=== PATIENT | male | born 1955 | race Caucasian/White ===

== ENCOUNTER → 2019-10-24 | Outpatient (CLI) | payer BC, SELFPAY ==
--- NOTE | 2019-10-24 | PROSBIL_PTH ---
PATIENT: ESAU ROWAN LOC: [facility] U#:[id number] AGE/SX: 64/M ROOM: RE10/24/[address]: Dr. Dony Byrnes MD : 1955 BED: DIS: 10/24/2019 SPEC #: [id number] RECD: 10/24/19 15:39 STATUS: LUNA KOREY #: [id number] GLADYS: 10/24/19 00:[address]: Dony Byrnes DEPT: SURGICAL PATHOLOGY RECD BY: Julio Sr ENTERED: 10/25/19 08:42 SP TYPE: PROST BX JOSE DR: Dr. Ayad Parker MD Tissues: A - PROSTATE RIGHT B - PROSTATE RIGHT C - PROSTATE RIGHT D - PROSTATE LEFT E - PROSTATE LEFT F - PROSTATE LEFT Procedures: PROSTATE BX HEADER OPERATION: Prostate biopsy PRE-OP DIAGNOSIS: Elevated PSA TISSUE SUBMITTED: A - Right apex, B - Right mid, C - Right base, D - Left apex, E - Left mid, F - Left base MICROSCOPIC DIAGNOSIS A. Right prostate, apex, core biopsy: Prostatic adenocarcinoma. Lando grade: 3+3=6 Number of cores involved: 1/1 Proportion of tissue involved: ~30-40% Perineural invasion: Not identified. Greatest tumor length: 1 cm, discontinuous B. Right prostate, mid, core biopsy: Prostatic adenocarcinoma. Lando grade: 3+3=6 Number of cores involved: 2/2 Proportion of tissue involved: 80% Perineural invasion: Present, focal. Greatest tumor length: 0.7 cm Focal high-grade prostatic intraepithelial neoplasia (HGPIN). C. Right prostate, base, core biopsy: Prostatic adenocarcinoma. Lando grade: 3+4=7 Number of cores involved: 1/2 Proportion of tissue involved: ~5 -10% Perineural invasion: Not identified. Greatest tumor length: 0.2 cm Focal high-grade prostatic intraepithelial neoplasia (HGPIN). See comment. D. Left prostate, apex, core biopsy: Prostatic tissue, negative for malignancy. E. Left prostate, mid, core biopsy: Focal minimal high-grade prostatic intraepithelial neoplasia (HGPIN). Focal atrophy. F. Left prostate, base, core biopsy: Focal high-grade prostatic intraepithelial neoplasia (HGPIN). SJ:nancy 10/26/19 COMMENT C. Immunohistochemistry ([id number]) supports the above diagnosis. Case has been reviewed in consultation with Dr. Morse who concurs with the above diagnosis. IDC:AM MICROSCOPIC DESCRIPTION Slides are reviewed. GROSS DESCRIPTION A - Received is one container designated prostate, right apex. The specimen consists of one elongated fragment of light hartman-white soft tissue measuring 1.5 cm in length and 0.1 cm in diameter. The specimen is totally submitted in one cassette. B - Received is one container designated prostate, right mid. The specimen consists of two elongated fragments of light hartman-white soft tissue measuring 0.8 and 1 cm in length and 0.1 cm in diameter. The specimen is totally submitted in one cassette. C - Received is one container designated prostate, right base. The specimen consists of two elongated fragments of light hartman-white soft tissue measuring 1 and 1.5 cm in length and 0.1 cm in diameter. The specimen is totally submitted in one cassette. D - Received is one container designated prostate, left apex. The specimen consists of one elongated fragment of light hartman-white soft tissue measuring 1.5 cm in length and 0.1 cm in diameter. The specimen is totally submitted in one cassette. E - Received is one container designated prostate, left mid. The specimen consists of two elongated fragments of light hartman-white soft tissue each measuring 1.5 cm in length and 0.1 cm in diameter. The specimen is totally submitted in one cassette. F - Received is one container designated prostate, left base. The specimen consists of two elongated fragments of light hartman-white soft tissue each measuring 1.5 cm in length and 0.1 cm in diameter. The specimen is totally submitted in one cassette. / SJ:rg 10/25/19 TC:0 [facility]: [id number] x6
--- NOTE | 2019-10-24 | IMM_PTH ---
PATIENT: ESAU ROWAN LOC: [facility] U#:[id number] AGE/SX: 64/M ROOM: RE10/24/[address]: Dr. Dony Byrnes MD : 1955 BED: DIS: 10/24/2019 SPEC #: [id number] RECD: 10/26/19 12:25 STATUS: LUNA REAlcira #: [id number] GLADYS: 10/24/19 00:[address]: Dony Byrnes DEPT: IMMUNOHISTOCHEMISTRY RECD BY: Francesca Smalls ENTERED: 10/26/19 12:25 SP TYPE: IMMUNO OTHR DR: Dr. Ayad Parker MD Tissues: C - PROSTATE RIGHT Procedures: P40 (add) 34BE12 (initial) PHYSICIAN & INSTITUTION [place] [id number] SPECIMEN INFORMATION: Tissue Source: C - Right prostate, base, core biopsy Clinical Info: Elevated PSA Specimen Number: [id number] CPT code: 26516, 81094 METHODOLOGY: Deparaffinized sections of prefer/formalin-fixed tissue or PAP/DQ stained slides are incubated with monoclonal/polyclonal antibodies/oligonucleotide probes. Localization is made via biotin free immunoperoxidase method. Appropriate controls are performed and reacted as expected. Results on target cell population are indicated in the following table: RESULTS: ANTIBODY / CLONE RESULT Block C P40 (BC28) negative 34BE12 (34BE12) negative These tests were developed and their performance characteristics determined by [facility]. They may not have been cleared or approved by the U.S. Food and Drug Administration. The FDA has determined that such clearance or approval is not necessary. The above immunohistochemical/dualISH markers are ordered and reviewed by the Pathologist. INTERPRETATION: C. Right prostate, base, core biopsy: Adenocarcinoma. DI:nancy 10/27/19
== END | disposition home or self-care (01) ==
LOC: LABSPEC 16:04
PROVIDERS: PCP Family Medicine; Referring Provider Urology; Visit Provider Urology
DX: R97.20 Elevated prostate specific antigen [PSA] (principal)
CPT/HCPCS: 88305; 88341; 88342; G0416

== ENCOUNTER 2019-12-20 06:01 | Day surgery (SDC) | payer BC, SELFPAY ==
--- NOTE | 2019-12-14 15:27 | EKG12_ITS ---
Test Reason : PRE OP Blood Pressure : / mmHG Vent. Rate : 066 BPM Atrial Rate : 066 BPM P-R Int : 160 ms QRS Dur : 092 ms QT Int : 414 ms P-R-T Axes : 034 -01 016 degrees QTc Int : 434 ms Normal sinus rhythm Septal infarct , age undetermined Abnormal ECG Confirmed by MARIA ESTHER NAVARRO, ROSLYN ([id number]), magazine editor MANUEL BARAHONA ([id number]) on 12/21/2019 8:37:25 AM Referred By: Dony Byrnes Confirmed By:KRYSTAL MAYO MD
[2019-12-14 16:22] LABS: Hematocrit 43.8 % (40-54); Hemoglobin 14.5 g/dL (13.0-16.5); Mean Corp Hgb Conc 33.1 g/dL (32-36); Mean Corpuscular Hgb 28.9 pg (27.0-32.0); Mean Corpuscular Volume 87.4 fL (80-94); Mean Platelet Vol. 11.3 fl (6.2-12.0); Platelet Count 243 K/mm3 (150-450); RBC Distribution Width CV 13.4 % (11.6-14.6); RBC Distribution Width SD 43.2 fl (35.1-43.9); Red Blood Count 5.01 M/mm3 (4.6-6.2); White Blood Count 8.7 K/mm3 (4.4-11.0)
[2019-12-20] VITALS (13 sets, daily range): BP systolic 106–137; BP diastolic 55–80; PULSE 49–89; RESP 16–18; TEMP 36.2–37.1; O2SAT 94–100; BMI 29.4; BMI 29.8
[2019-12-20] MEDS: Lactated Ringers 1,000 ML 100 ML IV ×4 (06:53→19:05)
--- NOTE | 2019-12-20 07:19 | PCM.HP.STD ---
Problem List (1) Prostate cancer Status: Acute History of Present Illness Date of Admission: 12/20/19 Chief Complaint: Prostate cancer The patient is a 64 year old male with prostate cancer on the right side of the prostate he had Baldemar 6 and also a low volume Baldemar 7 disease. Plan to proceed with laparoscopic robotic assisted radical prostatectomy with bilateral nerve sparing. Past Medical History Allergies No Known Allergies Allergy (Verified 12/20/19 06:46) Home Medications: Ambulatory Orders Medication Instructions Recorded Glucos Sul 2Kcl/MSM/Chond/C/Mn 1 ea PO DAILY 12/11/19 [Glucosamine Chondroitin Cap] Multivitamin [Multiple Vitamins] 1 ea PO DAILY 12/11/19 Surgical History: no surgical history Smoking Status: Never smoker Tobacco Use: Non-smoker Review of Systems Constitutional: Denies: Chills, Fever, Weight Change HEENT: Denies: Head Aches, Sinus Congestion, Sinus Drainage Cardiovascular: Denies: Chest Pain, Palpitations Respiratory: Denies: Cough, Shortness of breath at rest, Sputum production Gastrointestinal: Denies: Abdominal Pain, Nausea, Vomiting Genitourinary: Denies: Dysuria Musculoskeletal: Denies: Joint Pain, Joint Tenderness Skin: Denies: Rash, Wounds Neurological: Denies: Numbness, Tingling, Focal weakness Psychiatric: Denies: Anxiety, Depression, Homicidal Ideations, Suicidal Ideations Hematologic/ Lymphatic: Denies: Easy Bruising, Easy Bleeding VTE Information - Inpt Only VTE Present on Admission: No Patient Problems: Active and Suspected Problems Prostate cancer (Acute) - Physical Exam Vitals/I&O's: Vital Signs Temp Pulse Resp BP Pulse Ox 97.9 F 65 16 137/79 H 97 12/20/19 06:46 12/20/19 06:46 12/20/19 06:46 12/20/19 06:46 12/20/19 06:46 Oxygen Delivery Method Room Air Weight: 98.47 kg Body Mass Index (BMI) 29.4 General: Alert, Oriented x3, Cooperative HEENT: Atraumatic, PERRLA, EOMI, Normocephalic Neck: Supple, No JVD, Negative Carotid Bruits Lungs: Clear to auscultation, Normal air movement Cardiovascular: Regular rate, No murmurs Abdomen: Bowel Sounds Present, Soft, Non Tender Extremities: No edema, Capillary Refill Less than 3 Seconds Skin: No rashes, No breakdown Musculoskeletal: No Tenderness to Palpation of Joints or Extremities Neurological: Cranial nerves II-XII grossly intact Psych/Mental Status: Normal Affect, Appropriate Current Medications Cefazolin Sodium 2 gm/ Sodium (Chloride) 110 mls @ 150 mls/hr IV PREOP ONE Stop: 12/20/19 07:43 Lactated Ringer's () 1,000 mls @ 100 mls/hr IV .Q10H SHWETA Last Admin: 12/20/19 06:53 Dose: 100 mls/hr Documented by: Lactated Ringer's () 1,000 mls @ 100 mls/hr IV .Q10H SHWETA Last Admin: 12/20/19 06:54 Dose: 100 mls/hr Documented by: Assessment/Plan All Active Problems Prostate cancer (Acute) Plan to proceed with laparoscopic robotic assisted radical prostatectomy with bilateral nerve sparing.
--- NOTE | 2019-12-20 07:23 | DCINST_ITS ---
Discharge Diet: No Restrictions, Light diet - advance as tolerated Discharge Activity: Return to Normal Activity, May Not Drive - for 2 days. Additional Activity Instructions:: Please be aware that pain medications may cause nausea. You should typically eat light foods as you take your pain medication. Pain medication may cause constipation, if this is a problem for you, please discuss with your doctor. Suture Line Care: Avoid Pulling/Pushing, Avoid Pinching/Bending Allergies/Adverse Reactions: Allergies No Known Allergies Allergy (Verified 12/20/19 06:46) Medications to take at Discharge Glucos Sul 2Kcl/MSM/Chond/C/Mn [Glucosamine Chondroitin Cap] 1 ea PO DAILY 12/11/19 Multivitamin [Multiple Vitamins] 1 ea PO DAILY 12/11/19 Ciprofloxacin [Cipro] 500 mg PO BID #14 tab 12/20/19 Docusate Sodium [Colace] 100 mg PO BID #20 cap 12/20/19 Hydrocodone/Acetaminophen [[place] 5-325 Tablet] 1 each PO Q4H PRN PRN 5 Days #14 tablet 12/20/19 The following prescriptions were given: Ciprofloxacin [Cipro] 500 mg PO BID #14 tab Transmission Status: Pending to [facility] Docusate Sodium [Colace] 100 mg PO BID #20 cap Transmission Status: Pending to [facility] Hydrocodone/Acetaminophen [[place] 5-325 Tablet] 1 each PO Q4H PRN PRN 5 Days #14 tablet PRN Reason: Pain Score 1-10/10 Transmission Status: Sent to [facility] Primary Care Physician: Ayad Parker MD [Primary Care Provider] - Test Results: Test results from this visit will be discussed in further detail at your follow- up appointment, if applicable. Please Follow Up With: Dnoy Byrnes MD When: Follow up 10 days after surgery to remove taylor
[2019-12-20] MEDS: Cefazolin 2 GM in 0.9% Normal Saline 100 ML IV (07:26)
--- NOTE | 2019-12-20 07:30 | PROST_PTH ---
PATIENT: ESAU ROWAN LOC: [facility] [place] [facility] [place] U[place][id number] AGE/SX: 64/M ROOM: RE12/20/[address]: Dr. Dony Byrnes MD : 1955 BED: DIS: 12/21/2019 SPEC #: [id number] RECD: 12/20/19 11:46 STATUS: LUNA REAlcira #: [id number] GLADYS: 12/20/19 07:[address]: Dony Byrnes DEPT: SURGICAL PATHOLOGY RECD BY: Roxana Boyd ENTERED: 12/20/19 11:56 SP TYPE: PROSTATE OTHR DR: Dr. Ayad Parker MD Tissues: A - Adipose tissue B - Prostate, NOS C - LYMPH NODE BIOPSY D - LYMPH NODE BIOPSY Procedures: Surgery Specimen Level IV Surgery Specimen Level V Surgery Specimen Level HEADER OPERATION: Lap robotic radical prostatectomy PRE-OP DIAGNOSIS: Malignant neoplasm of prostate; elevated PSA TISSUE SUBMITTED: A - Fat over prostate, B - Prostate, C - Right lymph node, D - Left lymph node MICROSCOPIC DIAGNOSIS A. Fat over prostate, biopsy: Mature adipose tissue. No evidence of malignancy. B. Prostate, radical prostatectomy: Prostatic adenocarcinoma. See Cancer checklist below. C. Right inguinal lymph nodes, regional lymphadenectomy: Two out of two lymph nodes negative for carcinoma. D. Left inguinal lymph nodes, regional lymphadenectomy: Four out of four lymph nodes negative for carcinoma. AM:nancy 12/22/19 COMMENT PROSTATE CANCER (RADICAL) SUMMARY: Specimen B Procedure: Radical Prostatectomy Prostate Size: 5 x 4 x 3 cm Histologic type: Adenocarcinoma Histologic grade: Grade 7 (3+4, group 2) Percent of Pattern 4: 25% Percent of Pattern 5: 0 Intraductal Carcinoma: Not identified Tumor Quantitation: 2.6 x 1.5 x 1.2 cm Extraprostatic Extension: Not identified Urinary Bladder Neck Invasion: Not identified Seminal Vesicle Invasion: Not identified Lymphvascular Invasion: Not identified Perineural Invasion: Present, frequent Margins: Distal urethral margin is focally positive for adenocarcinoma. Regional Lymph Nodes: Specimens C & D Number of lymph nodes involved by carcinoma: 0 Total Number of Lymph Nodes Examined: 6 Treatment Effect: Unknown Additional Pathologic Findings: Chronic inflammation and benign hyperplasia. PATHOLOGIC STAGE: T2 N0 Mx The above summary is in compliance with [employer] [place] [employer] (CAP) Cancer Protocols Checklist and [place] [employer] Committee on Cancer (AJCC), Staging Manual, 8th Ed. Reference is made to the patient's prostate biopsies ([id number]) in which Baldemar grade 7 (3+4) adenocarcinoma was identified. Case has been reviewed in consultation with Dr. Silveira who concurs with the above diagnosis. IDC:SJ MICROSCOPIC DESCRIPTION Slides are reviewed. GROSS DESCRIPTION A - Received in fixative is one container labeled with the patient's name and designated fat over prostate. The specimen consists of multiple irregular fragments of hartman-yellow fibrofatty tissue that in aggregate measure 3 x 2.5 x 0.3 cm. The specimen is totally submitted in one cassette. / AM: 12/20/19 B - Received in fixative is one container labeled with the patient's name and designated prostate. The specimen consists of a radical prostatectomy specimen consisting of prostate and bilateral seminal vesicles weighing 57 gm. The prostate measures 5 cm transversely, 4 cm anterior-posteriorly and 3 cm craniocaudally. The right seminal vesicle measures 3.5 x 2 x 1 cm and right vas deferens measures 2 cm in length and 0.5 cm in diameter. The left seminal vesicle measures 3 x 1.5 x 1 cm and the left vas deferens measures 2 cm in length and 0.5 cm in diameter. The prostate is inked as follows: anterior surface - yellow, posterior surface - black, right lateral surface - blue, left lateral surface - green. The bilateral seminal vesicles and vas deferens are inked as follows: posterior surface - black, anterior surface right seminal vesicle and vas deferens - blue and anterior left seminal vesicle and vas deferens - green. Sections of prostate do not reveal any obvious mass lesions. Sections reveal multiple brown stones measuring <0.1 to 0.1 cm in greatest dimension. Loan Manager sections are submitted in 21 cassettes as follows: 1 - right seminal vesicle and vas deferens, 2 - left seminal vesicle and vas deferens, 3 - apical (urethral) margin, enface, 4 & 5 - bladder base and basal portion of prostate margin, enface, 69?- apical portion prostate, 10-13 - middle portion prostate, 14-21 - basal portion prostate. More than 95% of the prostate is submitted. / SJ:nancy 12/21/19 C - Received in fixative is one container labeled with the patient's name and designated right lymph node. The specimen consists of an irregular fragment of hartman-yellow fatty tissue measuring 2.5 x 2 x 0.6 cm. The specimen is submitted in its entirety in one cassette. / AM:nancy 12/20/19 D - Received in fixative is one container labeled with the patient's name and designated left lymph node. The specimen consists of an irregular fragment of hartman-yellow fatty tissue measuring 3.2 x 2 x 0.8 cm. The specimen is bisected and totally submitted in two cassettes. / AM:nancy 12/20/19 TC:0 CPT: 82856, 54550 x2, 53697
[2019-12-20] MEDS: Bupivacaine Mpf 0.5% 30 ML VIAL (10:54)
--- NOTE | 2019-12-20 11:01 | PCM.OPRPT ---
Problem List (1) Prostate cancer Status: Acute Report of Operation Date of Procedure: 12/20/19 Pre-Operative Diagnosis: Prostate cancer Post-Operative Diagnosis: Same Surgery/Procedure Performed:: Laparoscopic robotic assisted radical prostatectomy with bilateral nerve sparing and bilateral pelvic lymph node dissection Description of Surgical Findings:: 64-year-old male was taken back to the operating room after smooth induction of general anesthesia he was placed in dorsolithotomy position. The penis and testicles are prepped and draped in usual sterile fashion as well as the abdomen. We draped the patient. We made a small incision in the umbilicus and carried the Veress needle into the peritoneal cavity and infiltrated the peritoneal cavity with CO2 gas placed my camera trocar right arm trocar to left arm trochars assistant professor in family studies suction port and air seal port. The robot was docked. First we incised the bladder and put the bladder on traction and created the space of Retzius dissect out the bladder so was stretched on the prostate. I then went to the right side and identified the pelvic lymph nodes behind the iliac vein is noted the nodes were dissected off and handed off as a specimen. Using clips to control bleeders and control the lymphatics. I did identify the obturator nerve and was uninjured during the dissection. I then went to the left side and then identified the lymph node packet on the left side of the left pelvic wall identified the lateral wall the daughter [place] the iliac vessels and the obturator nerve and the left side is also identified dissected out the lymph nodes on the left side these were sent off as a permanent for permanent section. I then went to the prostate and incised the endopelvic fascia in the right and left side dusted up up to the dorsal vein complex we defatted the prostate and the fat was sent off as a separate specimen I then incised the puboprostatic ligaments and then placed a stitch in the dorsal vein complex we then dissected between the prostate and bladder the bladder off the prostate going until we reached the catheter and the catheter was put up on traction we dissected posteriorly until we had identified the vas deferens and seminal vesicles the right vas deferens and was I dissected out the left seminal vesicles were dissected out after both the right and left seminal vesicles were dissected out then we went on top of the prostate and the right side release the neurovascular bundle was swept off the lateral side of the prostate worked our way back came through the pedicle on the right side and then worked her way on the right side releasing her neurovascular bundle on the right side all the way up to the prostate apex the neurovascular bundle came up really nicely there was no violation of the prosthetic capsule. The prostate came off in standard fashion. I then went to the left side we incised the endopelvic fascia and the prostate swept that off laterally identified the neurovascular bundle swept off the prostate laterally worked our way to the pedicle on the left side the pedicles taken with clips and then the neurovascular bundle was released off the prostate posteriorly all the way up to the apex. We then transit through the dorsal vein complex down to the urethra circumferentially dissected all the way around the urethra and then I placed an extra stitch in the dorsal vein complex to control bleeding we transected through the urethra and the prostate was then put an Endo Catch bag during the process of clipping 1 of the clips that break off and we found the first part of the clip initially during the case and then later on we found the second part of the clip so there was no foreign object left in the body. We then performed anastomosis between the bladder neck and the urethra over catheter this was done with a continuous 30V lock stitch at the 6:00 to 12 o'clock position with 2 arms using for the anastomosis once the anastomosis was completed we then flushed the catheter robot was undocked and we put a new catheter in the bladder is an 18 [place] cath with a catheter flushed to clear and then we extracted the prostate to the air seal port we closed the umbilical port with a Db Plascencia stitch and the patient's anesthetic was being reversed all sponges and needles were accounted for procedure went really well prostate was removed with no violations and a good nerve sparing bilaterally and lymph nodes were removed. Family was informed of the outcome of surgery patient is currently being awakened from anesthesia. Type of Anesthesia:: General Drains: taylor - Admit VTE Documentation VTE Present on Admission: No VTE Mechan Device Prophylaxis: SCD's
[2019-12-20] MEDS: Ketorolac 15 MG/ML Vial IV ×2 (13:34→19:06)
[2019-12-20] MEDS: Ciprofloxacin 400 MG/200 ML BAG 200 MG IV (13:36)
[2019-12-20] MEDS: HYDROcodone Bitartrate/Apap 5/325 Tablet PO (15:27)
[2019-12-21] MEDS: Lactated Ringers 1,000 ML 100 ML IV (00:12)
[2019-12-21] MEDS: Ketorolac 15 MG/ML Vial IV ×3 (00:13→11:41)
[2019-12-21 01:24] VITALS: BP 107/52; PULSE 63; RESP 16; TEMP 36.8; O2SAT 98
[2019-12-21 01:27] VITALS: BMI 29.8
[2019-12-21] MEDS: Ciprofloxacin 400 MG/200 ML BAG 200 MG IV (01:31)
[2019-12-21 05:23] VITALS: BP 104/85; PULSE 64; RESP 16; TEMP 36.7; O2SAT 98
[2019-12-21 05:28] VITALS: BMI 29.8
[2019-12-21 09:04] VITALS: BP 123/68; PULSE 75; RESP 16; TEMP 36.7; O2SAT 96
== END 2019-12-21 13:10 | disposition home or self-care (01) ==
LOC: SDC 06:02 → AC 06:05 → MS3 12-21 14:09
PROVIDERS: Anesthesiology; PCP Family Medicine; Referring Provider Urology; Visit Provider Urology
PROC: 0VT04ZZ Resection of Prostate, Percutaneous Endoscopic Approach (ICD-10-PCS; CPT 55866; principal; 2019-12-20 07:10)
DX: C61 Malignant neoplasm of prostate (principal); Z11.59 Encounter for screening for other viral diseases
CPT/HCPCS: 00865; 38570; 55866; 36415; 85027; 86850; 86900; 86901; 87635; 88304; 88305; 88307; 88309; 93005; 99251; C9803; J7120; A4216; G0463; J0744; J2405; U0003

== ENCOUNTER → 2020-02-20 15:51 | Outpatient (CLI) | payer BC, SELFPAY ==
[2019-12-20 13:28] VITALS: BMI 29.8
[2020-02-20 17:35] LABS: PSA,Total- Diagnostic 0.01 ng/mL (0.0-4.0)
== END ==
PROVIDERS: PCP Family Medicine; Referring Provider Urology; Visit Provider Urology
DX: C61 Malignant neoplasm of prostate (principal)
CPT/HCPCS: 36415; 84153

== ENCOUNTER → 2022-01-07 | Outpatient (CLI) | payer MEDICARE, SELFPAY ==
[2022-01-07 17:46] LABS: PSA,Total- Diagnostic 0.34 ng/mL (0.0-4.0)
== END | disposition home or self-care (01) ==
LOC: LAB 16:41
PROVIDERS: PCP Family Medicine; Referring Provider Urology; Visit Provider Urology
DX: C61 Malignant neoplasm of prostate (principal)
CPT/HCPCS: 36415; 84153

== ENCOUNTER → 2022-02-19 | Outpatient (CLI) | payer MEDICARE, BC, SELFPAY ==
--- NOTE | 2022-02-19 12:33 | MRI_ITS ---
STUDY: MR PELVIS WITH T WITHOUT CONTRAST REASON FOR EXAM: Male, 67 years old. biochemical recurrence of prostate cancer -- eval for gross disease; PROSTATE REMOVED 2019 TECHNIQUE: Standardized fat and water weighted pulse sequences were obtained in all 3 orthogonal planes, pre-and post contrast administration. IV 20ML CLARISCAN was administered for the contrast portion of the examination. COMPARISON: None. FINDINGS: Normal urinary bladder. Normal visualized small intestine. Normal visualized colon. There is no pelvic fluid. There is no pelvic mass lesion or lymphadenopathy. Normal visualized pelvic arteries. No bone marrow edema. Normal abdominal wall. Prostate gland is surgically absent. No pelvic sidewall adenopathy. No solid or cystic masses or enhancing abnormality in the prostate bed. MRI/Pelvis W/WO Contrast IMPRESSION: 1. Prostatectomy. No solid/cystic mass or pelvic adenopathy. Electronically Signed: Marc Gray (Brooks), at 17:01 EST ,
[2022-02-19 13:21] LABS: CREATININE FINGERSTICK < 0.9 mg/dL (0.70-1.30); EGFR FINGERSTICK > 60.0000 mL/min (>60)
== END | disposition home or self-care (01) ==
LOC: MRI 12:33
PROVIDERS: PCP Family Medicine; Referring Provider Student in an Organized Health Care Education/Training Program; Visit Provider Student in an Organized Health Care Education/Training Program
DX: C61 Malignant neoplasm of prostate (principal); Z19.1 Hormone sensitive malignancy status
CPT/HCPCS: 72197; A9575

== ENCOUNTER → 2022-08-28 | Outpatient (CLI) | payer MEDICARE, BC, SELFPAY ==
[2022-08-28 17:17] LABS: PSA,Total- Diagnostic < 0.01 ng/mL (0.0-4.0)
== END | disposition home or self-care (01) ==
LOC: LAB 16:23
PROVIDERS: PCP Family Medicine; Referring Provider Registered Nurse; Visit Provider Registered Nurse
DX: C61 Malignant neoplasm of prostate (principal)
CPT/HCPCS: 36415; 84153

== ENCOUNTER → 2023-02-24 | Outpatient (CLI) | payer MEDICARE, BC, SELFPAY ==
[2023-02-24 17:25] LABS: PSA,Total- Diagnostic < 0.01 ng/mL (0.0-4.0)
== END | disposition home or self-care (01) ==
LOC: LAB 15:53
PROVIDERS: PCP Family Medicine; Referring Provider Urology; Visit Provider Urology
DX: C61 Malignant neoplasm of prostate (principal)
CPT/HCPCS: 36415; 84153

== ENCOUNTER → 2023-08-24 | Outpatient (CLI) | payer MEDICARE, BC, SELFPAY ==
[2023-08-24 11:56] LABS: PSA,Total- Diagnostic < 0.01 ng/mL (0.0-4.0)
[2023-08-28 16:09] LABS: Testosterone, % Free 2.41 % (1.50-4.20); Testosterone, Free 4.05 ng/dL (5.00-21.00); Testosterone, Total 168 ng/dL (264-916)
== END | disposition home or self-care (01) ==
LOC: LAB 10:51
PROVIDERS: Student in an Organized Health Care Education/Training Program; PCP Family Medicine; Referring Provider Urology; Visit Provider Urology
DX: R97.20 Elevated prostate specific antigen [PSA] (principal)
CPT/HCPCS: 36415; 84153; 84402; 84403

== ENCOUNTER → 2024-03-28 | Outpatient (CLI) | payer MEDICARE, SELFPAY ==
[2024-03-28 14:43] LABS: PSA,Total- Diagnostic < 0.01 ng/mL (0.0-4.0)
== END | disposition home or self-care (01) ==
LOC: LAB 13:45
PROVIDERS: PCP Family Medicine; Referring Provider Nurse Practitioner; Visit Provider Nurse Practitioner
DX: C61 Malignant neoplasm of prostate (principal)
CPT/HCPCS: 36415; 84153; 84403

== ENCOUNTER → 2024-09-26 | Outpatient (CLI) | payer MEDICARE, SELFPAY ==
[2024-09-26 11:35] LABS: Hematocrit 42.6 % (40-54); Hemoglobin 14.7 g/dL (13.0-16.5); Immature Granulocytes Count 0.010 X10^3/uL (0.0-0.0); Mean Corp Hgb Conc 34.5 g/dL (32-36); Mean Corpuscular Volume 85.9 fL (80-94); Mean Platelet Vol. 11.1 fl (6.2-12.0); NRBC Flagged by Analyzer 0 % (0-5); Platelet Count 186 K/mm3 (150-450); RBC Distribution Width CV 13.2 % (11.6-14.6); RBC Distribution Width SD 41.7 fl (35.1-43.9); Red Blood Count 4.96 M/mm3 (4.6-6.2); White Blood Count 6.3 K/mm3 (4.4-11.0)
[2024-09-26 12:52] LABS: AST(SGOT) 35 U/L (<=37); Alanine Aminotransfer ALT/SGPT 32 U/L (<=46); Albumin, Serum 4.6 g/dL (3.4-4.8); Alkaline Phosphatase 78 U/L (40-129); Anion Gap 10 (5-15); BUN 14 mg/dL (4-19); BUN/Creat Ratio 13.6 RATIO (10-20); Calcium,Total 9.7 mg/dL (7.6-11.0); Carbon Dioxide 25.3 mmol/L (21.0-32.0); Chloride 105 mmol/L (98-108); Cholesterol 207 mg/dL (<=200); Globulin 2.6 g/dL (2.2-4.2); Glucose 93 mg/dL (70-99); Low Density Lipoprotein Calc. 132 mg/dL; Potassium 5.1 mmol/L (3.3-5.1); Triglycerides 179 mg/dL; Very Low Density Lipoprotein 36 mg/dL (5-40); cholesterol:hdl ratio screen 5.21
[2024-09-26 13:00] LABS: PSA,Total- Diagnostic < 0.02 ng/mL (0.00-4.00)
== END | disposition home or self-care (01) ==
LOC: LAB 11:07
PROVIDERS: PCP Family Medicine; Referring Provider Urology; Visit Provider Urology
DX: Z00.00 Encounter for general adult medical examination without abnormal findings (principal); C61 Malignant neoplasm of prostate; Z13.820 Encounter for screening for osteoporosis; Z13.29 Encounter for screening for other suspected endocrine disorder
CPT/HCPCS: 36415; 80053; 80061; 83036; 84153; 84439; 84443; 85025